=== PATIENT | female | born 1995 | race African-American/Black ===

== ENCOUNTER 2018-01-29 01:33 | Emergency (ER) | payer OTHER ==
[~2018-01-29] VITALS: Ht 165.1 cm; Wt 90.7 kg
[2018-01-29 01:51] VITALS: BP 137/88
[2018-01-29] MEDS ORDERED: LIDOCAINE 2% PF 2ML VIAL. ONE (02:12)
--- NOTE | 2018-01-29 02:15 | PHYS DOC ---
Past Medical History Past Medical History: No Pertinent History Past Surgical History: No Surgical History Alcohol Use: None Drug Use: None Adult General Chief Complaint Chief Complaint: FOREIGNBODY EAR HPI HPI Patient is a 22-year-old -[place] female who presents to the emergency department for evaluation of a foreign body sensation in her right ear. She states that she felt a bug crawl in her ear earlier and still feels the bug moving. She denies any other complaints of pain. She has not had any nausea or vomiting. Review of Systems Review of Systems Constitutional: Denies fever or chills [] Respiratory: Denies cough or shortness of breath [] : Denies [] Current Medications Current Medications Current Medications Medications (Trade) Dose Ordered Sig/Kailash Start Time Stop Time Status Last Admin Dose Admin Lidocaine HCl (Xylocaine-Mpf 2% Vial) 2 ml STK-MED ONCE 01/29/18 02:12 01/29/18 02:13 DC Allergies Allergies Allergies Coded Allergies Type Severity Reaction Last Updated Verified No Known Drug Allergies 08/20/14 No Physical Exam Physical Exam PHYSICAL EXAM: HEENT: PERRL, EOMI, There is at least one bug, moving, visualized in the right external auditory canal. NECK: Supple, normal ROM, non-tender. CARDIAC: Regular Rate and Rhythm LUNGS: Clear Bilaterally EXTREMITIES: Normal range of motion. Current Patient Data Vital Signs Vital Signs Date Time Temp Pulse Resp B/P (MAP) Pulse Ox O2 Delivery O2 Flow Rate FiO2 01/29/18 01:51 97.9 75 18 137/88 (104) 99 Room Air 97.9 EKG EKG [] Radiology/Procedures Radiology/Procedures [] Course & Med Decision Making Course & Med Decision Making FOREIGN BODY REMOVAL ATTEMPTS: 1% lidocaine was instilled with the right external auditory canal, which resulted in killing of the insect in the patient's ear, as evidenced by lack of movement. Several attempts were made, using both an alligator forceps, as well as a lighted ear curet, to remove the bug, but was unable to be removed, partially due to the patient's poor tolerance of attempts, due to discomfort from the instruments in her ear canal. Irrigation was attempted as well without success. I discussed the residual foreign body in her ear, the need for ENT follow-up later today, where the patient can have the bug removed. Dragon Disclaimer Dragon Disclaimer This electronic medical record was generated, in whole or in part, using a voice recognition dictation system. Departure Departure Impression: Primary Impression: Foreign body in ear Disposition: 01 HOME, SELF-CARE Condition: STABLE Referrals: INÉS FULLER MD Patient Instructions: Ear Foreign Body Additional Instructions: Bug in her ear was unable to be removed in the emergency department. It is important that she follow-up with your nose and throat specialist as instructed for definitive treatment and bug removal. BALAJI WOLFE MD Jan 29, 2018 02:15
== END 2018-01-29 02:42 | disposition home or self-care (01) ==
LOC: ER 01:33
DX: T16.1XXA Foreign body in right ear, initial encounter (principal); Y93.89 Activity, other specified; Y92.89 Other specified places as the place of occurrence of the external cause; Y99.8 Other external cause status
CPT/HCPCS: 69200; 99284-25

== ENCOUNTER 2018-03-04 16:23 | Emergency (ER) | payer SELFPAY ==
[~2018-03-04] VITALS: Ht 165.1 cm; Wt 90.7 kg
[2018-03-04 17:44] VITALS: BP 144/89
[2018-03-04] MEDS ORDERED: AZIT250T PO (18:20)
[2018-03-04] MEDS ORDERED: METH4TAB2 PO (18:20)
--- NOTE | 2018-03-04 18:21 | PHYS DOC ---
Past Medical History Past Medical History: No Pertinent History Past Surgical History: No Surgical History Additional Information: 0.25 PPD Alcohol Use: Occasionally Drug Use: None Adult General Chief Complaint Chief Complaint: CHEST WALL PAIN HPI HPI Patient is a 22 year old [f__sex] who presents with [] Review of Systems Review of Systems Constitutional: Denies fever or chills [] Eyes: Denies change in visual acuity, redness, or eye pain [] HENT: Denies nasal congestion or sore throat [] Respiratory: Denies cough or shortness of breath [] Cardiovascular: No additional information not addressed in HPI [] GI: Denies abdominal pain, nausea, vomiting, bloody stools or diarrhea [] : Denies dysuria or hematuria [] Musculoskeletal: Denies back pain or joint pain [] Integument: Denies rash or skin lesions [] Neurologic: Denies headache, focal weakness or sensory changes [] Endocrine: Denies polyuria or polydipsia [] All other systems were reviewed and found to be within normal limits, except as documented in this note. Allergies Allergies Allergies Coded Allergies Type Severity Reaction Last Updated Verified No Known Drug Allergies 08/20/14 No Physical Exam Physical Exam Constitutional: Well developed, well nourished, no acute distress, non-toxic appearance. [] HENT: Normocephalic, atraumatic, bilateral external ears normal, oropharynx moist, no oral exudates, nose normal. [] Eyes: PERRLA, EOMI, conjunctiva normal, no discharge. [] Neck: Normal range of motion, no tenderness, supple, no stridor. [] Cardiovascular:Heart rate regular rhythm, no murmur [] Lungs & Thorax: Bilateral breath sounds clear to auscultation [] Abdomen: Bowel sounds normal, soft, no tenderness, no masses, no pulsatile masses. [] Skin: Warm, dry, no erythema, no rash. [] Back: No tenderness, no CVA tenderness. [] Extremities: No tenderness, no cyanosis, no clubbing, ROM intact, no edema. [] Neurologic: Alert and oriented X 3, normal motor function, normal sensory function, no focal deficits noted. [] Psychologic: Affect normal, judgement normal, mood normal. [] Current Patient Data Vital Signs Vital Signs Date Time Temp Pulse Resp B/P (MAP) Pulse Ox O2 Delivery O2 Flow Rate FiO2 9/19/18 17:44 97.8 92 20 144/89 (107) 100 Room Air 97.8 EKG EKG [] Radiology/Procedures Radiology/Procedures [] Course & Med Decision Making Course & Med Decision Making Pertinent Labs and Imaging studies reviewed. (See chart for details) [] Dragon Disclaimer Dragon Disclaimer This electronic medical record was generated, in whole or in part, using a voice recognition dictation system. Departure Departure Impression: Primary Impression: Chest wall pain Disposition: HOME, SELF-CARE Condition: STABLE Referrals: NO PCP (PCP) Patient Instructions: Bronchitis, Chest Wall Pain Additional Instructions: Take the medication as prescribed. Follow up with your PCP in 3 days if not improving or return to the ED if worsening. Scripts Azithromycin (ZITHROMAX) 250 Mg Tablet 1 PKG PO UD, #1 PKG Prov: SAVANNA DUMONT ASSEMBLY LEADER 03/04/18 Methylprednisolone (MEDROL) 4 Mg Tab.ds.pk 1 PKG PO UD, #1 PKG Prov: SAVANNA DUMONT ASSEMBLY LEADER 03/04/18 SVAANNA DUMONT ASSEMBLY LEADER Mar 04, 2018 18:21
--- NOTE | 2018-03-04 19:54 | EKG ---
[facility] [address] [place] [address] Test Date: 2018-03-04 Test Time: 16:44:04 Pat Name: MORENO BROWN Department: Room: Gender: F Employment And Claims Aide: : 1995 Requested By: KYA MENDOZA Order Number: [id number] Reading MD: Measurements Intervals [place] Rate: 103 P: 51 VT: 154 QRS: 42 QRSD: 72 T: 31 QT: 330 QTc: 434 Interpretive Statements SINUS TACHYCARDIA OTHERWISE NORMAL ECG RI6.01 No previous ECG available for comparison
== END 2018-03-04 18:33 | disposition home or self-care (01) ==
LOC: ER 16:23
DX: R07.89 Other chest pain (principal); F17.200 Nicotine dependence, unspecified, uncomplicated
CPT/HCPCS: 93005; 99283

== ENCOUNTER 2018-11-16 21:40 | Emergency (ER) | payer OTHER ==
[~2018-11-16] VITALS: Ht 165.1 cm; Wt 107.5 kg
[~2018-11-16 21:40] MED LIST changes: -METO10TA81 PO
--- NOTE | 2018-11-16 22:10 | PHYS DOC ---
Past Medical History Past Medical History: No Pertinent History (KIM CONNELL) Past Surgical History: No Surgical History (KIM CONNELL) Alcohol Use: None Drug Use: None (KIM CONNELL) Adult General Chief Complaint Chief Complaint: VOMITING IN HPI HPI Patient is a 23 year old F who is 19 weeks with her second . She has a 4 year old little boy at home and states her first was uncomplicated. She saw her OB, Dr Panchal, today and had an ultrasound done which showed is a girl. She discussed with him that she hasn't felt well, lots of N/V and he recommended she come in for IV fluids but she didn't want to at that time. She is here now with complaints of N/V, headache and "not feeling well". She denies vaginal bleeding or any cramps or contractions. heart tones were obtained on arrival and strong in 130-140's in LLQ region. (KIM CONNELL) Review of Systems Review of Systems Constitutional: Denies fever or chills Respiratory: Denies cough or shortness of breath Cardiovascular: Denies chest pain GI: Denies abdominal pain, constipation or diarrhea. Reports nausea and vomiting. : Denies dysuria or hematuria. Denies vaginal discharge or vaginal bleeding. Musculoskeletal: Denies back pain or joint pain Integument: Denies rash or skin lesions Neurologic: Denies headache, focal weakness or sensory changes Endocrine: Denies polyuria or polydipsia All other systems were reviewed and found to be within normal limits, except as documented in this note. (KIM CONNELL) Current Medications Current Medications Current Medications Medications (Trade) Dose Ordered Sig/Kailash Start Time Stop Time Status Last Admin Dose Admin Acetaminophen (Tylenol) 650 mg 1X ONCE 11/16/18 23:15 11/16/18 23:16 DC 11/16/18 23:58 650 MG Diphenhydramine HCl (Benadryl) 12.5 mg 1X ONCE 11/16/18 22:15 11/16/18 22:16 DC 11/16/18 22:26 12.5 MG Metoclopramide HCl (Reglan Vial) 5 mg 1X ONCE 6/3/19 23:15 11/16/18 23:16 DC 11/16/18 23:59 5 MG Potassium Chloride (Klor-Con) 20 meq 1X ONCE 11/16/18 23:00 11/16/18 23:01 DC 11/16/18 23:00 20 MEQ Sodium Chloride 1,000 ml @ 1,000 mls/hr 1X ONCE 11/16/18 22:15 11/16/18 23:14 DC 11/16/18 22:25 1,000 MLS/HR (ROSARIO SANTACRUZ MD) Allergies Allergies Allergies Coded Allergies Type Severity Reaction Last Updated Verified No Known Drug Allergies 08/20/14 No (ROSARIO SANTACRUZ MD) Physical Exam Physical Exam Constitutional: Well developed, well nourished, no acute distress, non-toxic appearance. HENT: Normocephalic, atraumatic, bilateral external ears normal, oropharynx moist, no oral exudates, nose normal. Neck: Normal range of motion, no tenderness, supple, no stridor. Cardiovascular:Heart rate regular rhythm, no murmur Lungs & Thorax: Bilateral breath sounds clear to auscultation Abdomen: Bowel sounds normal, soft, no tenderness, no masses, no pulsatile masses. Gravid uterus consistent with dates. Skin: Warm, dry, no erythema, no rash. Back: No tenderness, no CVA tenderness. Extremities: No tenderness, no cyanosis, no clubbing, ROM intact, no edema. Neurologic: Alert and oriented X 3, normal motor function, normal sensory function, no focal deficits noted. Psychologic: Affect normal, judgement normal, mood normal. (KIM CONNELL) Current Patient Data Vital Signs Vital Signs Date Time Temp Pulse Resp B/P (MAP) Pulse Ox O2 Delivery O2 Flow Rate FiO2 11/17/18 00:00 84 18 105/58 (74) 99 Room Air 11/16/18 21:59 98.4 98.4 (ROSARIO SANTACRUZ MD) Lab Values Laboratory Tests Test 11/16/18 21:56 11/16/18 22:14 Urine Collection Type Unknown Urine Color Genesis Urine Clarity Turbid Urine pH 6.0 Urine Specific [place] >=1.030 Urine Protein 100 mg/dL (NEG-TRACE) Urine Glucose (UA) Negative mg/dL (NEG) Urine Ketones (Stick) >=80 mg/dL (NEG) Urine Blood Trace (NEG) Urine Nitrite Negative (NEG) Urine Bilirubin Negative (NEG) Urine Urobilinogen Dipstick 1.0 mg/dL (0.2 mg/dL) Urine Leukocyte Esterase Large (NEG) Urine RBC Occ /HPF (0-2) Urine WBC 5-10 /HPF (0-4) Urine Squamous Epithelial Cells Many /LPF Urine Bacteria Few /HPF (0-FEW) Urine Mucus Mod /LPF White Blood Count 8.7 x10^3/uL (4.0-11.0) Red Blood Count 3.50 x10^6/uL (3.50-5.40) Hemoglobin 10.5 g/dL (12.0-15.5) L Hematocrit 31.1 % (36.0-47.0) L Mean Corpuscular Volume 89 fL (79-100) Mean Corpuscular Hemoglobin 30 pg (25-35) Mean Corpuscular Hemoglobin Concent 34 g/dL (31-37) Red Cell Distribution Width 13.3 % (11.5-14.5) Platelet Count 107 x10^3/uL (140-400) L Neutrophils (%) (Auto) 65 % (31-73) Lymphocytes (%) (Auto) 25 % (24-48) Monocytes (%) (Auto) 9 % (0-9) Eosinophils (%) (Auto) 1 % (0-3) Basophils (%) (Auto) 1 % (0-3) Neutrophils # (Auto) 5.7 x10^3uL (1.8-7.7) Lymphocytes # (Auto) 2.2 x10^3/uL (1.0-4.8) Monocytes # (Auto) 0.8 x10^3/uL (0.0-1.1) Eosinophils # (Auto) 0.0 x10^3/uL (0.0-0.7) Basophils # (Auto) 0.0 x10^3/uL (0.0-0.2) Sodium Level 141 mmol/L (136-145) Potassium Level 3.0 mmol/L (3.5-5.1) L Chloride Level 102 mmol/L (98-107) Carbon Dioxide Level 24 mmol/L (21-32) Anion Gap 15 (6-14) H Blood Urea Nitrogen 2 mg/dL (7-20) L Creatinine 0.5 mg/dL (0.6-1.0) L Estimated GFR (Cockcroft-Gault) 181.9 BUN/Creatinine Ratio 4 (6-20) L Glucose Level 84 mg/dL (70-99) Calcium Level 9.3 mg/dL (8.5-10.1) Total Bilirubin 0.3 mg/dL (0.2-1.0) Aspartate Amino Transferase (AST) 21 U/L (15-37) Alanine Aminotransferase (ALT) 48 U/L (14-59) Alkaline Phosphatase 70 U/L (46-116) Total Protein 6.9 g/dL (6.4-8.2) Albumin 3.6 g/dL (3.4-5.0) Albumin/Globulin Ratio 1.1 (1.0-1.7) Laboratory Tests 11/16/18 22:14 Laboratory Tests 11/16/18 22:14 (ROSARIO SANTACRUZ MD) Lab Values Laboratory Tests Test 11/16/18 21:56 11/16/18 22:14 Urine Collection Type Unknown Urine Color Genesis Urine Clarity Turbid Urine pH 6.0 Urine Specific [place] >=1.030 Urine Protein 100 mg/dL (NEG-TRACE) Urine Glucose (UA) Negative mg/dL (NEG) Urine Ketones (Stick) >=80 mg/dL (NEG) Urine Blood Trace (NEG) Urine Nitrite Negative (NEG) Urine Bilirubin Negative (NEG) Urine Urobilinogen Dipstick 1.0 mg/dL (0.2 mg/dL) Urine Leukocyte Esterase Large (NEG) Urine RBC Occ /HPF (0-2) Urine WBC 5-10 /HPF (0-4) Urine Squamous Epithelial Cells Many /LPF Urine Bacteria Few /HPF (0-FEW) Urine Mucus Mod /LPF White Blood Count 8.7 x10^3/uL (4.0-11.0) Red Blood Count 3.50 x10^6/uL (3.50-5.40) Hemoglobin 10.5 g/dL (12.0-15.5) L Hematocrit 31.1 % (36.0-47.0) L Mean Corpuscular Volume 89 fL (79-100) Mean Corpuscular Hemoglobin 30 pg (25-35) Mean Corpuscular Hemoglobin Concent 34 g/dL (31-37) Red Cell Distribution Width 13.3 % (11.5-14.5) Platelet Count 107 x10^3/uL (140-400) L Neutrophils (%) (Auto) 65 % (31-73) Lymphocytes (%) (Auto) 25 % (24-48) Monocytes (%) (Auto) 9 % (0-9) Eosinophils (%) (Auto) 1 % (0-3) Basophils (%) (Auto) 1 % (0-3) Neutrophils # (Auto) 5.7 x10^3uL (1.8-7.7) Lymphocytes # (Auto) 2.2 x10^3/uL (1.0-4.8) Monocytes # (Auto) 0.8 x10^3/uL (0.0-1.1) Eosinophils # (Auto) 0.0 x10^3/uL (0.0-0.7) Basophils # (Auto) 0.0 x10^3/uL (0.0-0.2) Sodium Level 141 mmol/L (136-145) Potassium Level 3.0 mmol/L (3.5-5.1) L Chloride Level 102 mmol/L (98-107) Carbon Dioxide Level 24 mmol/L (21-32) Anion Gap 15 (6-14) H Blood Urea Nitrogen 2 mg/dL (7-20) L Creatinine 0.5 mg/dL (0.6-1.0) L Estimated GFR (Cockcroft-Gault) 181.9 BUN/Creatinine Ratio 4 (6-20) L Glucose Level 84 mg/dL (70-99) Calcium Level 9.3 mg/dL (8.5-10.1) Total Bilirubin 0.3 mg/dL (0.2-1.0) Aspartate Amino Transferase (AST) 21 U/L (15-37) Alanine Aminotransferase (ALT) 48 U/L (14-59) Alkaline Phosphatase 70 U/L (46-116) Total Protein 6.9 g/dL (6.4-8.2) Albumin 3.6 g/dL (3.4-5.0) Albumin/Globulin Ratio 1.1 (1.0-1.7) Laboratory Tests 11/16/18 22:14 Laboratory Tests 11/16/18 22:14 (KIM CONNELL) EKG EKG [] (KIM CONNELL) Radiology/Procedures Radiology/Procedures [] (KIM CONNELL) Course & Med Decision Making Course & Med Decision Making Pertinent Labs and Imaging studies reviewed. (See chart for details) Pt's labs reassuring. Hypokalemia noted. She did tolerated PO potassium while in ER and had no vomiting. She was given IV fluids and Reglan and reported feeling improvement. Recommend potassium rich diet and fluids and bland diet and close f/u with Dr. Panchal. Pt to return if symptoms worsen at anytime. (KIM CONNELL) Course & Med Decision Making Staff Physician Addendum: I was working in the ER during the course of this patient's visit. I was available for consultation as needed, but I was not directly involved in the care of this patient. (ROSARIO SANTACRUZ MD) Dragon Disclaimer Dragon Disclaimer This electronic medical record was generated, in whole or in part, using a voice recognition dictation system. (KIM CONNELL) Departure Departure Impression: Primary Impression: Nausea and vomiting during Additional Impression: Hypokalemia Disposition: 01 HOME, SELF-CARE Condition: IMPROVED Referrals: NO PCP (PCP) LOLIS PANCHAL Jr, MD Patient Instructions: Diet - Hyperemesis Gravidarum, Hypokalemia, Nausea and Vomiting, [id number] Additional Instructions: Coffee diet (ex: bananas, rice, applesauce, toast) Push fluids. Eat and drink potassium rich foods, such as orange juice, bananas, green vegetables. Scripts Metoclopramide Hcl (REGLAN) 10 Mg Tablet 10 MG PO BIDAC PRN for NAUSEA/VOMITING, #20 TAB 0 Refills Prov: KIM CONNELL 11/16/18 Problem Qualifiers KIM CONNELL Nov 16, 2018 22:10 ROSARIO SANTACRUZ MD Nov 17, 2018 04:56
[2018-11-16 22:13] LABS: BILIRUBIN,URINE NEGATIVE (NEG); CLARITY,URINE TURBID; COLOR,URINE AMBER; NITRITE,URINE NEGATIVE (NEG); PROTEIN,URINE 100 mg/dL (NEG-TRACE)
[2018-11-16] MEDS ORDERED: diphenhydrAMINE 50 MG/ML VIAL IVP ONE (22:15)
[2018-11-16] MEDS ORDERED: METOCLOPRAMIDE HCL 10 MG/2 ML VIAL. IV ONE ×2 (22:15→23:15)
[2018-11-16] MEDS ORDERED: IV NORMAL SALINE 1000ML BAG 1,000 ML IV ONE (22:15)
[2018-11-16 22:22] LABS: BASO % 1 % (0-3); EOS % 1 % (0-3); HEMATOCRIT 31.1 % (36.0-47.0); HEMOGLOBIN 10.5 g/dL (12.0-15.5); LYMPH # 2.2 x10^3/uL (1.0-4.8); LYMPH % 25 % (24-48); MEAN CORPUSCULAR HEMOGLOBIN 30 pg (25-35); MEAN CORPUSCULAR HGB CONC 34 g/dL (31-37); MEAN CORPUSCULAR VOLUME 89 fL (79-100); MONO # 0.8 x10^3/uL (0.0-1.1); MONO % 9 % (0-9); NEUT # 5.7 x10^3uL (1.8-7.7); NEUT % 65 % (31-73); PLATELET COUNT 107 x10^3/uL (140-400); RED CELL DISTRIBUTION WIDTH 13.3 % (11.5-14.5); WHITE BLOOD COUNT 8.7 x10^3/uL (4.0-11.0)
[2018-11-16 22:27] LABS: SQUAMOUS EPITHELIAL CELL,UR MANY /LPF
[2018-11-16 22:28] LABS: BACTERIA,URINE FEW /HPF (0-FEW); RBC,URINE OCC /HPF (0-2)
[2018-11-16 22:39] LABS: ALBUMIN 3.6 g/dL (3.4-5.0); ALBUMIN/GLOBULIN RATIO 1.1 (1.0-1.7); CALCIUM 9.3 mg/dL (8.5-10.1); CREATININE 0.5 mg/dL (0.6-1.0); GFR 181.9; TOTAL BILIRUBIN 0.3 mg/dL (0.2-1.0); TOTAL PROTEIN 6.9 g/dL (6.4-8.2)
[2018-11-16] MEDS ORDERED: POTASSIUM CHLORIDE 20 MEQ TABLET.ER. PO ONE ×2 (22:58→23:00)
[2018-11-16] MEDS ORDERED: ACETAMINOPHEN 325 MG TABLET. PO ONE (23:15)
[2018-11-16] MEDS ORDERED: METO10TA81 PO (23:19)
[2018-11-17] VITALS: BP 105/58
== END 2018-11-17 00:06 | disposition home or self-care (01) ==
LOC: ER 21:40
DX: O21.9 Vomiting of pregnancy, unspecified (principal); E87.6 Hypokalemia; R51 Headache; Z3A.19 19 weeks gestation of pregnancy
CPT/HCPCS: 36415; 80053; 81001; 85025; 87086; 96361; 96374; 96375; 96376; 99284; J1200; J2765; J7030

== ENCOUNTER → 2018-11-16 | Outpatient (CLI) | payer MEDICAID, OTHER ==
[~2018-11-16] MED LIST: AZIT250T PO; METH4TAB2 PO; METO10TA81 PO
--- NOTE | 2018-11-16 16:32 | RAD ---
EXAM: Obstetric ultrasound. HISTORY: Size/date discrepancy. COMPARISON: None. FINDINGS: Sonography of the pelvis and fetus was performed transabdominally. There is a single fetus in vertex presentation. heart rate is 155 bpm. Estimated gestational age based on measurements is 19 weeks 6 days. Estimated weight is 302 g. Individual measurements are commensurate at 19 weeks 2 days-20 weeks 3 days for biparietal diameter, head circumference, abdominal circumference, and femur length. Refer to the worksheets for full detail. The placenta is posterior. Amniotic fluid volume appears normal with amniotic fluid index 16.4 cm. The cervix is closed and measures 4.0 cm. extremities appear normal. Images of the spine reveal no clear defects. The stomach and bladder are visualized. The cord is three-vessel. The cord insertion appears normal. The heart is four-chamber. Nose/lip morphology appears normal. The posterior fossa appears normal. There is no hydrocephalus. Images of the kidneys reveal no hydronephrosis. The maternal adnexa are obscured currently. IMPRESSION: 1. Single fetus in vertex presentation. Estimated gestational age based on measurements 19 weeks 6 days. heart rate 155 bpm. Electronically signed by: Daniel Cosby MD (11/16/2018 4:29 PM) [facility]
== END | disposition home or self-care (01) ==
LOC: US 11:37
PROVIDERS: ATTEND Obstetrics & Gynecology
DX: O26.842 Uterine size-date discrepancy, second trimester (principal); Z3A.19 19 weeks gestation of pregnancy
CPT/HCPCS: 76805

== ENCOUNTER → 2019-02-24 | Outpatient (CLI) | payer OTHER ==
[~2019-02-24] MED LIST changes: +METO10TA81 PO
[2019-02-24 14:00] LABS: BASO % 0 % (0-3); EOS % 0 % (0-3); HEMATOCRIT 26.9 % (36.0-47.0); HEMOGLOBIN 9.1 g/dL (12.0-15.5); LYMPH # 1.6 x10^3/uL (1.0-4.8); LYMPH % 17 % (24-48); MEAN CORPUSCULAR HEMOGLOBIN 30 pg (25-35); MEAN CORPUSCULAR HGB CONC 34 g/dL (31-37); MEAN CORPUSCULAR VOLUME 90 fL (79-100); MONO # 0.5 x10^3/uL (0.0-1.1); MONO % 6 % (0-9); NEUT # 7.1 x10^3/uL (1.8-7.7); NEUT % 77 % (31-73); PLATELET COUNT 149 x10^3/uL (140-400); RED BLOOD COUNT 2.99 x10^6/uL (3.50-5.40); RED CELL DISTRIBUTION WIDTH 13.8 % (11.5-14.5); WHITE BLOOD COUNT 9.3 x10^3/uL (4.0-11.0)
== END | disposition home or self-care (01) ==
LOC: LAB 12:16
PROVIDERS: ATTEND Obstetrics & Gynecology
DX: O09.93 Supervision of high risk pregnancy, unspecified, third trimester (principal); Z3A.34 34 weeks gestation of pregnancy
CPT/HCPCS: 36415; 82950; 85025

== ENCOUNTER 2019-04-10 15:03 | Observation (INO) | payer OTHER ==
[2019-04-10] MEDS ORDERED: IV RINGERS,LACTATED 1000ML 1,000 ML IV SCH (15:32)
[2019-04-10 15:54] LABS: BILIRUBIN,URINE NEGATIVE (NEG); CLARITY,URINE CLEAR; COLOR,URINE YELLOW; NITRITE,URINE NEGATIVE (NEG); PH,URINE 7.5; PROTEIN,URINE NEGATIVE (NEG-TRACE); UROBILINOGEN,URINE 0.2 mg/dL (0.2 mg/dL)
[2019-04-10 16:09] LABS: AMORPHOUS SEDIMENT,UR PRESENT /HPF; BACTERIA,URINE MODERATE /HPF (0-FEW); SQUAMOUS EPITHELIAL CELL,UR MANY /LPF; WBC,URINE 20-40 /HPF (0-4)
[2019-04-10 16:11] LABS: RBC,URINE 0 /HPF (0-2)
== END 2019-04-10 17:00 | disposition home or self-care (01) ==
LOC: 3 SO LND 15:03
PROVIDERS: ADMIT Obstetrics & Gynecology; ATTEND Obstetrics & Gynecology
DX: O62.9 Abnormality of forces of labor, unspecified (principal); Z3A.39 39 weeks gestation of pregnancy
CPT/HCPCS: G0378; G0379; 81001; 87086

== ENCOUNTER 2019-04-11 07:08 | Inpatient (IN) | payer OTHER ==
[~2019-04-11] VITALS: Ht 162.6 cm; Wt 105.2 kg
[2019-04-11] MEDS ORDERED: IV RINGERS,LACTATED 1000ML 1,000 ML IV PRN (07:15)
[2019-04-11 07:30] VITALS: BP 131/77
[2019-04-11 08:06] LABS: BILIRUBIN,URINE NEGATIVE (NEG); CLARITY,URINE CLOUDY; COLOR,URINE YELLOW; NITRITE,URINE NEGATIVE (NEG); PH,URINE 6.5; PROTEIN,URINE NEGATIVE (NEG-TRACE)
[2019-04-11] MEDS ORDERED: TERBUTALINE 1 MG/ML VIAL. SQ PRN (08:15)
[2019-04-11] MEDS ORDERED: fentaNYL PF VIAL 100 MCG/2 ML VIAL IV PRN ×2 (08:15)
[2019-04-11] MEDS ORDERED: 0.9 % SODIUM CHLORIDE 10 ML DISP.SYRIN. IV PRN ×2 (08:15→11:45)
[2019-04-11] MEDS ORDERED: OXYTOCIN 30 UNIT/500 ML PREMIX 500 ML IV PRN ×3 (08:15→11:45)
[2019-04-11] MEDS ORDERED: LIDOCAINE 1% PF 30 ML VIAL. INJ PRN (08:15)
[2019-04-11] MEDS ORDERED: IBUPROFEN 400 MG TABLET. PO PRN (08:15)
[2019-04-11 08:21] LABS: BACTERIA,URINE MODERATE /HPF (0-FEW); SQUAMOUS EPITHELIAL CELL,UR MOD /LPF; WBC,URINE >40 /HPF (0-4)
[2019-04-11 08:28] LABS: BASO # 0.1 x10^3/uL (0.0-0.2); BASO % 1 % (0-3); EOS % 0 % (0-3); HEMOGLOBIN 10.8 g/dL (12.0-15.5); LYMPH # 1.8 x10^3/uL (1.0-4.8); LYMPH % 19 % (24-48); MEAN CORPUSCULAR HEMOGLOBIN 30 pg (25-35); MEAN CORPUSCULAR HGB CONC 34 g/dL (31-37); MEAN CORPUSCULAR VOLUME 89 fL (79-100); MONO # 0.7 x10^3/uL (0.0-1.1); MONO % 7 % (0-9); NEUT # 6.8 x10^3/uL (1.8-7.7); NEUT % 72 % (31-73); PLATELET COUNT 144 x10^3/uL (140-400); RED BLOOD COUNT 3.58 x10^6/uL (3.50-5.40); RED CELL DISTRIBUTION WIDTH 14.4 % (11.5-14.5); WHITE BLOOD COUNT 9.4 x10^3/uL (4.0-11.0)
[2019-04-11] MEDS ORDERED: PENICILLIN G K 5,000,000 UNIT in IV DEXTROSE 5% 100ML 100 ML IV ONE (08:30)
[2019-04-11] MEDS: IV RINGERS,LACTATED 1000ML 1,000 ML IV SCH ×4 (08:32→16:57)
[2019-04-11] MEDS ORDERED: NALOXONE 0.4 MG/ML VIAL. IV PRN (09:00)
[2019-04-11] MEDS ORDERED: ROPIVacaine 0.2% IN 0.9%NACL PF 40 MG/20 ML DISP.SYRIN. IJ PRN (09:00)
[2019-04-11] MEDS ORDERED: ePHEDrine PF IN SALINE 50 MG/10 ML SYRINGE. IV PRN (09:00)
[2019-04-11] MEDS ORDERED: ROPIVacaine 0.2% PF 10 ML VIAL. ONE (09:06)
[2019-04-11] MEDS ORDERED: L&D EPIDURAL SYRINGE 50 ML EPID PRN (09:15)
--- NOTE | 2019-04-11 11:32 | PDOC1 ---
OB - History Hx of Present Care: Good Care Ultrasounds: Normal mid trimester US Obstetrical Complications: None Medical Complications: None Past Family/Social History * Past Medical, Surgical, Family and Obstetric Histories reviewed from chart. Rubella: Immune RPR/VDRL: Negative GBS Status: Negative HBsAG: Negative OB - Chief Complaint & HPI Date of Admission: Date of Admission: Apr 11, 2019 at 07:08 Chief Complaint/History : 2 Para: 1 EGA: 39 Reason for admission: active labor Admission Nurse Assessment Rev: Yes OB - Admission Exam Physical Exam Vitals: VS - Last 72 Hours, by Label Date Time Temp Pulse Resp B/P (MAP) Pulse Ox O2 Delivery O2 Flow Rate FiO2 04/11/19 08:27 16 Room Air 04/11/19 07:30 97.5 88 20 131/77 (95) 97.5 HEENT: Normal Heart: Regular Rate Lungs: Clear Abdomen: Gravid, Non tender, Soft Extremities: Edema Reflexes: Normal Cervical Dilatation: 4cm Effacement: 75% Station: -3 Membranes: Intact Amniotic Fluid: Thick Meconium Heart Rate: Normal Accelerations: Accelerations Present Decelerations: No decelerations Contractions on Admission: < 5 Minutes Apart Intensity: Firm Text A: 39 wks IUP Active labor P: Admit labor management. LOLIS MANN Jr, MD Apr 11, 2019 11:32
--- NOTE | 2019-04-11 11:33 | PDOC ---
VAGINAL DELIVERY DATE DATE: 04/11/19 TIME: 11:32 : 2 Para: 2 EGA: 39 VAGINAL DELIVERY: VTX VACCUM ASSISTED: No PLACENTA: Spontaneous 8/9 SEX: Female WEIGHT Weight [3274 gm] Nuchal Cord: No Amniotic Fluid: Thick Meconium PAIN: Epidural EPISIOTOMY: No EXTENSION: No EBL 300 ml COMPLICATIONS none CONDITION pt. stable Signs of Intrauterine Infectio: None Shoulder Dystocia: No LOLIS MANN Jr, MD Apr 11, 2019 11:33
[2019-04-11] MEDS ORDERED: PHENYLEPH/MINERAL OIL/PETROLAT RECTAL OINTMENT TUBE. RC PRN (11:45)
[2019-04-11] MEDS ORDERED: ACETAMINOPHEN 325 MG TABLET. PO PRN (11:45)
[2019-04-11] MEDS ORDERED: diphenhydrAMINE HCL 25 MG CAPSULE PO PRN (11:45)
[2019-04-11] MEDS ORDERED: MMR per PROTOCOL. MC PRN (11:45)
[2019-04-11] MEDS ORDERED: BENZOCAINE 20% TOPICAL AEROSOL SPRAY 57GM CAN. TP PRN (11:45)
[2019-04-11] MEDS ORDERED: ZOLPIDEM 5 MG TABLET. PO PRN (11:45)
[2019-04-11] MEDS ORDERED: MAGNESIUM HYDROXIDE 2,400 MG/30 ML ORAL.SUSP. PO PRN (11:45)
[2019-04-11] MEDS ORDERED: SIMETHICONE 80 MG TAB.CHEW PO PRN (11:45)
[2019-04-11] MEDS ORDERED: MAG HYDROX/ALUMINUM HYD/SIMETH 30 ML ORAL.SUSP PO PRN (11:45)
[2019-04-11] MEDS ORDERED: HYDROCORTISONE 1% TOPICAL OINTMENT 30GM TUBE. TP PRN (11:45)
[2019-04-11] MEDS: PENICILLIN G K 2,500,000 UNIT in IV DEXTROSE 5% 50 ML IV SCH ×3 (12:30→20:30)
[2019-04-11 14:35] VITALS: BP 153/68
[2019-04-11 15:05] VITALS: BP 117/68
[2019-04-11 16:00] VITALS: BP 112/73
[2019-04-11] MEDS: IBUPROFEN 400 MG TABLET. PO PRN (16:05)
[2019-04-11] MEDS: oxyCODONE/APAP 5/325 1 TAB TABLET PO PRN ×2 (19:04→23:10)
[2019-04-11 19:54] VITALS: BP 112/69
[2019-04-11] MEDS: DOCUSATE SODIUM 100 MG CAPSULE. PO PRN (23:08)
[2019-04-12] MEDS: oxyCODONE/APAP 5/325 1 TAB TABLET PO PRN ×6 (00:04→23:58)
[2019-04-12 00:21] VITALS: BP 107/58
[2019-04-12] MEDS: PENICILLIN G K 2,500,000 UNIT in IV DEXTROSE 5% 50 ML IV SCH (00:30)
[2019-04-12 04:22] LABS: BASO % 0 % (0-3); EOS % 0 % (0-3); HEMATOCRIT 26.8 % (36.0-47.0); HEMOGLOBIN 8.8 g/dL (12.0-15.5); LYMPH # 2.5 x10^3/uL (1.0-4.8); LYMPH % 22 % (24-48); MEAN CORPUSCULAR HEMOGLOBIN 30 pg (25-35); MEAN CORPUSCULAR HGB CONC 33 g/dL (31-37); MEAN CORPUSCULAR VOLUME 90 fL (79-100); MONO # 1.2 x10^3/uL (0.0-1.1); MONO % 11 % (0-9); NEUT # 7.9 x10^3/uL (1.8-7.7); NEUT % 67 % (31-73); PLATELET COUNT 126 x10^3/uL (140-400); RED BLOOD COUNT 2.98 x10^6/uL (3.50-5.40); RED CELL DISTRIBUTION WIDTH 14.3 % (11.5-14.5); WHITE BLOOD COUNT 11.8 x10^3/uL (4.0-11.0)
[2019-04-12] MEDS: IBUPROFEN 400 MG TABLET. PO PRN ×2 (05:35→13:21)
[2019-04-12 05:44] VITALS: BP 123/86
[2019-04-12] MEDS: FERROUS SULFATE 325 MG TABLET. PO SCH ×2 (06:53→17:25)
[2019-04-12] MEDS: DOCUSATE SODIUM 100 MG CAPSULE. PO PRN ×2 (06:53→17:25)
--- NOTE | 2019-04-12 07:41 | PDOC ---
OB Progress Note Date of Service 04/12/19 Time of Evaluation 0740 Notes Pt. feeling well. No complaints. Lab Laboratory Tests Test 04/11/19 07:46 04/11/19 07:50 04/12/19 03:25 Urine Collection Type Unknown Urine Color Yellow Urine Clarity Cloudy Urine pH 6.5 Urine Specific [place] 1.020 Urine Protein Negative mg/dL (NEG-TRACE) Urine Glucose (UA) Negative mg/dL (NEG) Urine Ketones (Stick) Trace mg/dL (NEG) Urine Blood Large (NEG) Urine Nitrite Negative (NEG) Urine Bilirubin Negative (NEG) Urine Urobilinogen Dipstick 1.0 mg/dL (0.2 mg/dL) Urine Leukocyte Esterase Large (NEG) Urine RBC 3-5 /HPF (0-2) Urine WBC >40 /HPF (0-4) Urine Squamous Epithelial Cells Mod /LPF Urine Bacteria Moderate /HPF (0-FEW) Urine Mucus Mod /LPF White Blood Count 9.4 x10^3/uL (4.0-11.0) 11.8 x10^3/uL (4.0-11.0) Red Blood Count 3.58 x10^6/uL (3.50-5.40) 2.98 x10^6/uL (3.50-5.40) Hemoglobin 10.8 g/dL (12.0-15.5) 8.8 g/dL (12.0-15.5) Hematocrit 32.0 % (36.0-47.0) 26.8 % (36.0-47.0) Mean Corpuscular Volume 89 fL (79-100) 90 fL (79-100) Mean Corpuscular Hemoglobin 30 pg (25-35) 30 pg (25-35) Mean Corpuscular Hemoglobin Concent 34 g/dL (31-37) 33 g/dL (31-37) Red Cell Distribution Width 14.4 % (11.5-14.5) 14.3 % (11.5-14.5) Platelet Count 144 x10^3/uL (140-400) 126 x10^3/uL (140-400) Neutrophils (%) (Auto) 72 % (31-73) 67 % (31-73) Lymphocytes (%) (Auto) 19 % (24-48) 22 % (24-48) Monocytes (%) (Auto) 7 % (0-9) 11 % (0-9) Eosinophils (%) (Auto) 0 % (0-3) 0 % (0-3) Basophils (%) (Auto) 1 % (0-3) 0 % (0-3) Neutrophils # (Auto) 6.8 x10^3/uL (1.8-7.7) 7.9 x10^3/uL (1.8-7.7) Lymphocytes # (Auto) 1.8 x10^3/uL (1.0-4.8) 2.5 x10^3/uL (1.0-4.8) Monocytes # (Auto) 0.7 x10^3/uL (0.0-1.1) 1.2 x10^3/uL (0.0-1.1) Eosinophils # (Auto) 0.0 x10^3/uL (0.0-0.7) 0.0 x10^3/uL (0.0-0.7) Basophils # (Auto) 0.1 x10^3/uL (0.0-0.2) 0.0 x10^3/uL (0.0-0.2) Treponema pallidum Antibody Nonreactive (Nonreactive) Laboratory Tests Test 04/11/19 07:46 04/11/19 07:50 04/12/19 03:25 Urine Collection Type Unknown Urine Color Yellow Urine Clarity Cloudy Urine pH 6.5 Urine Specific [place] 1.020 Urine Protein Negative mg/dL (NEG-TRACE) Urine Glucose (UA) Negative mg/dL (NEG) Urine Ketones (Stick) Trace mg/dL (NEG) Urine Blood Large (NEG) Urine Nitrite Negative (NEG) Urine Bilirubin Negative (NEG) Urine Urobilinogen Dipstick 1.0 mg/dL (0.2 mg/dL) Urine Leukocyte Esterase Large (NEG) Urine RBC 3-5 /HPF (0-2) Urine WBC >40 /HPF (0-4) Urine Squamous Epithelial Cells Mod /LPF Urine Bacteria Moderate /HPF (0-FEW) Urine Mucus Mod /LPF White Blood Count 9.4 x10^3/uL (4.0-11.0) 11.8 x10^3/uL (4.0-11.0) Red Blood Count 3.58 x10^6/uL (3.50-5.40) 2.98 x10^6/uL (3.50-5.40) Hemoglobin 10.8 g/dL (12.0-15.5) 8.8 g/dL (12.0-15.5) Hematocrit 32.0 % (36.0-47.0) 26.8 % (36.0-47.0) Mean Corpuscular Volume 89 fL (79-100) 90 fL (79-100) Mean Corpuscular Hemoglobin 30 pg (25-35) 30 pg (25-35) Mean Corpuscular Hemoglobin Concent 34 g/dL (31-37) 33 g/dL (31-37) Red Cell Distribution Width 14.4 % (11.5-14.5) 14.3 % (11.5-14.5) Platelet Count 144 x10^3/uL (140-400) 126 x10^3/uL (140-400) Neutrophils (%) (Auto) 72 % (31-73) 67 % (31-73) Lymphocytes (%) (Auto) 19 % (24-48) 22 % (24-48) Monocytes (%) (Auto) 7 % (0-9) 11 % (0-9) Eosinophils (%) (Auto) 0 % (0-3) 0 % (0-3) Basophils (%) (Auto) 1 % (0-3) 0 % (0-3) Neutrophils # (Auto) 6.8 x10^3/uL (1.8-7.7) 7.9 x10^3/uL (1.8-7.7) Lymphocytes # (Auto) 1.8 x10^3/uL (1.0-4.8) 2.5 x10^3/uL (1.0-4.8) Monocytes # (Auto) 0.7 x10^3/uL (0.0-1.1) 1.2 x10^3/uL (0.0-1.1) Eosinophils # (Auto) 0.0 x10^3/uL (0.0-0.7) 0.0 x10^3/uL (0.0-0.7) Basophils # (Auto) 0.1 x10^3/uL (0.0-0.2) 0.0 x10^3/uL (0.0-0.2) Treponema pallidum Antibody Nonreactive (Nonreactive) Medications Current Medications Ringer's Solution 1,000 ml @ 125 mls/hr Q8H PRN IV PER PROTOCOL; Start 04/11/19 at 07:15; Stop 04/11/19 at 20:31; Status DC Sodium Chloride (Normal Saline Flush) 3 ml QSHIFT PRN IV AFTER MEDS AND BLOOD DRAWS; Start 04/11/19 at 08:15; Stop 04/12/19 at 07:01; Status DC Ringer's Solution 1,000 ml @ 125 mls/hr Q8H IV Last administered on 04/11/19at 08:32; Start 04/11/19 at 08:30; Stop 04/11/19 at 20:31; Status DC Fentanyl Citrate (Fentanyl 2ml Vial) 50 mcg PRN Q30MIN PRN IV Mild to moderate pain; Start 04/11/19 at 08:15; Stop 04/12/19 at 07:01; Status DC Fentanyl Citrate (Fentanyl 2ml Vial) 100 mcg PRN Q30MIN PRN IV Severe pain Last administered on 04/11/19at 08:27; Start 04/11/19 at 08:15; Stop 04/12/19 at 07:01; Status DC Terbutaline Sulfate (Brethine) 0.25 mg 1X PRN PRN SQ SEE COMMENTS; Start 04/11/19 at 08:15; Stop 04/12/19 at 07:01; Status DC Lidocaine HCl (Xylocaine 1% Pf 30ml Vial) 30 ml 1X PRN PRN INJ SEE COMMENTS; Start 04/11/19 at 08:15; Stop 04/12/19 at 07:01; Status DC Oxytocin/Sodium Chloride 500 ml @ 0 mls/hr CONT PRN IV SEE I/O RECORD; Start 04/11/19 at 08:15; Stop 04/11/19 at 11:42; Status DC Oxytocin/Sodium Chloride 500 ml @ 0 mls/hr CONT PRN PRN IV Post delivery bleeding; Start 04/11/19 at 08:15; Stop 04/11/19 at 11:42; Status DC Ibuprofen (Motrin) 800 mg PRN Q6HRS PRN PO PAIN; Start 04/11/19 at 08:15; Stop 04/11/19 at 11:42; Status DC Penicillin G Potassium 8000481 unit/Dextrose 100 ml @ 100 mls/hr 1X ONCE IV Last administered on 04/11/19at 08:28; Start 04/11/19 at 08:30; Stop 04/11/19 at 20:31; Status DC Penicillin G Potassium 3927361 unit/Dextrose 50 ml @ 100 mls/hr Q4H IV ; Start 04/11/19 at 12:30; Stop 04/12/19 at 01:48; Status DC Fentanyl Citrate 50 ml @ 13 mls/hr CONT PRN EPID PAIN; Start 04/11/19 at 09:15; Stop 04/12/19 at 07:01; Status DC Ringer's Solution 1,000 ml @ 125 mls/hr Q8H IV ; Start 04/11/19 at 08:57; Stop 04/11/19 at 20:31; Status DC Ephedrine Sulfate (ePHEDrine PF IN SALINE SYRINGE) 10 mg PRN Q2MIN PRN IV IF SBP<90; Start 04/11/19 at 09:00; Stop 04/12/19 at 07:01; Status DC Naloxone HCl (Narcan) 0.04 mg PRN Q1MIN PRN IV SEE COMMENTS; Start 04/11/19 at 09:00; Stop 04/12/19 at 07:01; Status DC Ropivacaine/ Sodium Chloride (ROPIVacaine 0.2% - 0.9%NACL PF) 40 mg PRN 1X PRN IJ SEE COMMENTS; Start 04/11/19 at 09:00; Stop 04/12/19 at 07:01; Status DC Ropivacaine (Naropin 0.2%) 10 ml STK-MED ONCE .ROUTE ; Start 04/11/19 at 09:06; Stop 04/11/19 at 09:07; Status DC Sodium Chloride (Normal Saline Flush) 10 ml QSHIFT PRN IV AFTER MEDS AND BLOOD DRAWS; Start 04/11/19 at 11:45; Stop 04/12/19 at 07:01; Status DC Oxytocin/Sodium Chloride 500 ml @ 62.5 mls/hr CONT PRN IV SEE I/O RECORD; Start 04/11/19 at 11:45; Stop 04/11/19 at 19:44; Status DC Acetaminophen (Tylenol) 650 mg PRN Q6HRS PRN PO MILD PAIN / TEMP; Start 04/11/19 at 11:45 Ibuprofen (Motrin) 800 mg PRN Q8HRS PRN PO INFLAMMATION/PAIN PREVENTION Last administered on 04/12/19at 05:35; Start 04/11/19 at 11:45 Docusate Sodium (Colace) 100 mg PRN BID PRN PO CONSTIPATION Last administered on 04/12/19at 06:53; Start 04/11/19 at 11:45 Magnesium Hydroxide (Milk Of Magnesia) 2,400 mg PRN DAILY PRN PO CONSTIPATION; Start 04/11/19 at 11:45 Al Hydroxide/Mg Hydroxide (Mylanta Plus Xs) 30 ml PRN Q4HRS PRN PO HEARTBURN / GAS; Start 04/11/19 at 11:45 Simethicone (Gas-X) 80 mg PRN AFTMEALHC PRN PO GAS / BLOATING; Start 04/11/19 at 11:45 Diphenhydramine HCl (Benadryl) 25 mg PRN Q6HRS PRN PO ITCHING; Start 04/11/19 at 11:45 Benzocaine (Americaine) 1 spray PRN QID PRN TP TOPICAL PAIN; Start 04/11/19 at 11:45 Phenyleph/Shark Oil/Min Oil/Petrol (Preparation H) 1 benoit PRN QID PRN RC RECTAL PAIN; Start 04/11/19 at 11:45 Hydrocortisone (Cortaid) 1 benoit PRN QID PRN TP PERINEAL PAIN; Start 04/11/19 at 11:45 Ferrous Sulfate (Feosol) 325 mg BIDWMEALS PO Last administered on 04/12/19at 06:53; Start 04/12/19 at 08:00 Zolpidem Tartrate (Ambien) 5 mg PRN QHS PRN PO INSOMNIA, MAY REPEAT X1; Start 04/11/19 at 11:45 Info (Do NOT chart on this placeholder) 1 ea 1X PRN PRN MC SEE COMMENTS; Start 04/11/19 at 11:45; Stop 04/12/19 at 07:01; Status DC Info (Do NOT chart on this placeholder) 1 ea 1X PRN PRN MC SEE COMMENTS; Start 04/11/19 at 11:45; Stop 04/12/19 at 07:01; Status DC Oxycodone/ Acetaminophen (Percocet 5/325) 2 tab PRN Q4HRS PRN PO MODERATE PAIN, SEVERE PAIN Last administered on 04/12/19at 05:35; Start 04/11/19 at 11:45 Active Scripts Active Reglan (Metoclopramide Hcl) 10 Mg Tablet 10 Mg PO BIDAC PRN Zithromax (Azithromycin) 250 Mg Tablet 1 Pkg PO UD Medrol (Methylprednisolone) 4 Mg Tab.ds.pk 1 Pkg PO UD Exam Abd: soft, non tender, fundus firm Assessment PPD#1 s/p Plan of Care: Continue current Tx, Mgmt LOLIS MANN Jr, MD Apr 12, 2019 07:41
[2019-04-12 11:26] VITALS: BP 119/80
[2019-04-12 16:07] VITALS: BP 126/77
[2019-04-12 21:06] VITALS: BP 124/91
[2019-04-13 04:00] VITALS: BP 131/73
[2019-04-13] MEDS: oxyCODONE/APAP 5/325 1 TAB TABLET PO PRN ×2 (06:38→11:09)
[2019-04-13] MEDS: FERROUS SULFATE 325 MG TABLET. PO SCH ×2 (08:06→16:39)
[2019-04-13] MEDS: DOCUSATE SODIUM 100 MG CAPSULE. PO PRN (08:11)
[2019-04-13] MEDS: IBUPROFEN 400 MG TABLET. PO PRN (08:49)
[2019-04-13 09:09] VITALS: BP 105/55
--- NOTE | 2019-04-13 13:07 | PDOC3 ---
OB DISCHARGE SUMMARY DATE OF ADMISSION: 04/11/19 DATE OF DISCHARGE: 04/13/19 REASON FOR ADMISSION: Onset of labor INTRAPARTUM PROCEDURES: Spontanous Vag Deliv DISCHARGE DIAGNOSIS: Term Delivered DISCHARGE INFORMATION: Activity (ad dennys), Diet (regular), Instructions (pelvic rest x 6 wks) HOSPITAL COURSE Term gestation delivered without complications LOLIS MANN Jr, MD Apr 13, 2019 13:07
[2019-04-13] MEDS ORDERED: IBUP-1027 PO (13:08)
--- NOTE | 2019-04-13 13:09 | DISCH ---
DISCHARGE INSTRUCTIONS Condition on Discharge Condition on Discharge: Stable Activity After Discharge Activity Instructions for Disc: Activity as tolerated Lifting Instructions after Dis: No heavy lifting, No pulling or pushing, Do not lift >10 pounds Exercise Instruction after Dis: Progress as tolerated Driving Instructions after Dis: No driving for 2 weeks Weight Bearing Status after Di: Full weight bearing Diet after Discharge Diet after Discharge: Regular Wound Incision Care Wound/Incision Care: No wound care needed Contacting the DRJosh after DC Call your doctor for: Concerns you may have Follow-Up Follow up with: Dr. Panchal in 6 wks Treatment/Equipment after DC Adaptive Equipment Issued: None LOLIS PANCHAL Jr, MD Apr 13, 2019 13:09
--- NOTE | 2019-04-14 18:06 | PATHOLOGY ---
[facility] Accession Number: [id number] . 01 Material submitted: . placenta - PLACENTA . 01 Clinical history: . ; EDC 04/12/19; 39.6 week gestation; thick meconium; GBS positive; small reducible umbilical hernia on baby . 02 Diagnosis: 484 gram term placenta of an estimated 39.6 weeks gestation with attached membranes and umbilical cord: - Subamniotic pigmented macrophages consistent with meconium staining. - Small intervillous thrombus. (JPM:osman; 04/14/2019) MBR 04/14/2019 1709 Local . 02 Comment: There is no evidence of an acute chorioamnionitis or villitis. There are no infarcts. (JPM:osman; 04/14/2019) . 02 Electronically signed: . Morgan Trevino MD, Pathologist NPI- [id number] . 01 Gross description: . The specimen is received in formalin, labeled "Naye Jaimes, placenta". Received is a osman placenta with attached membranes and umbilical cord with a trimmed placental weight of 484 g and measuring 19.5 x 17.1 x 2.6 cm in greatest dimensions. The membranes are blue-nance to nance-green in appearance, and the site of membrane rupture is 5.6 cm from the placental margin. The surface is intact, displaying a normal arborizing vascular pattern, and is blue-green in appearance with completely detached amnion wrapped around the cord at the insertion site. The trivascular umbilical cord measures 47.2 cm in length by up to 1.5 cm in diameter and inserts centrally, 8.1 cm from the closest placental margin. The umbilical cord is white-delgadillo to white-green in appearance with moderate helical twisting. The maternal surface is intact and complete; a slight amount of adherent blood coagulum is seen on the surface. Sectioning reveals red-brown cut surfaces with no grossly distinct nodules or lesions. The specimen is submitted representatively as follows: . A1 proximal umbilical cord and surface vessels A2 umbilical cord and membrane roll A3-A4 patient intake representative sections of maternal surface. (CAA; 04/13/2019) QAC/QAC 04/14/2019 1505 Local . 02 Pathologist provided ICD-10: O77.0, O43.893, Z37.0, Z3A.39 . 02 CPT . 508812 Specimen Comment: A courtesy copy of this report has been sent to [phone] Specimen Comment: Report sent to Performed at: 01 [facility] [address], [place] [id number] MD Justyn Fowler MD Phone: [phone] Performed at: 02 [facility] [address] [place], [place] [id number] MD Morgan Trevino MD Phone: [phone]
== END 2019-04-13 17:28 | disposition home or self-care (01) | DRG 806 ==
LOC: 3 SO LND 07:08 → OBSVTOIN 07:08 → 3 NORTH 14:35
PROVIDERS: ADMIT Obstetrics & Gynecology; ATTEND Obstetrics & Gynecology
PROC: 10E0XZZ Delivery of Products of Conception, External Approach (ICD-10-PCS; principal; 2019-04-11)
PROC: 3E0R3BZ Introduction of Anesthetic Agent into Spinal Canal, Percutaneous Approach (ICD-10-PCS; 2019-04-11)
PROC: 00HU33Z Insertion of Infusion Device into Spinal Canal, Percutaneous Approach (ICD-10-PCS; 2019-04-11)
DX: O77.0 Labor and delivery complicated by meconium in amniotic fluid (principal); R71.0 Precipitous drop in hematocrit; Z37.0 Single live birth; Z3A.39 39 weeks gestation of pregnancy; O75.89 Other specified complications of labor and delivery
CPT/HCPCS: 36415; 81001; 85025; 86592; 86850; 86900; 86901; 87086; 88307; G0378; G0379; J2540; J3010; J7120

== ENCOUNTER 2020-02-13 10:33 | Emergency (ER) | payer OTHER ==
[~2020-02-13] VITALS: Ht 162.6 cm; Wt 95.4 kg
[~2020-02-13 10:33] MED LIST changes: +IBUP-1027 PO
--- NOTE | 2020-02-13 11:29 | PHYS DOC ---
Past Medical History Past Medical History: No Pertinent History Past Surgical History: No Surgical History Smoking Status: Current Some Day Smoker Alcohol Use: None Drug Use: None General Adult EDM: Chief Complaint: BLOOD IN URINE HPI: HPI: Patient is a 24 year old female who presents with 3 days of blood in her urine with urinary frequency. She denies abdominal pain, nausea, vomiting, diarrhea, back pain, headache, dizziness, fever, chills, body aches, chest pain, shortness of air. Patient denies any pain at this time. She denies any past medical history. She states she takes no medications daily. Review of Systems: Review of Systems: Constitutional: Denies fever or chills. [] Eyes: Denies change in visual acuity. [] HENT: Denies nasal congestion or sore throat. [] Respiratory: Denies cough or shortness of breath. [] Cardiovascular: Denies chest pain or edema. [] GI: Denies abdominal pain, nausea, vomiting, bloody stools or diarrhea. [] : dysuria. Hematuria. [] Musculoskeletal: Denies back pain or joint pain. [] Integument: Denies rash. [] Neurologic: Denies headache, focal weakness or sensory changes. [] Endocrine: Denies polyuria or polydipsia. [] Lymphatic: Denies swollen glands. [] Psychiatric: Denies depression or anxiety. [] Heart Score: Risk Factors: Risk Factors: DM, Current or recent (<one month) smoker, HTN, HLP, family history of CAD, obesity. Risk Scores: Score 0 - 3: 2.5% MACE over next 6 weeks - Discharge Home Score 4 - 6: 20.3% MACE over next 6 weeks - Admit for Clinical Observation Score 7 - 10: 72.7% MACE over next 6 weeks - Early Invasive Strategies Allergies: Allergies: Allergies Coded Allergies Type Severity Reaction Last Updated Verified No Known Drug Allergies 08/24/19 No Physical Exam: PE: Constitutional: Well developed, well nourished, no acute distress, non-toxic appearance. [] HENT: Normocephalic, atraumatic, bilateral external ears normal, oropharynx moist, no oral exudates, nose normal. [] Eyes: PERRLA, EOMI, conjunctiva normal, no discharge. [] Neck: Normal range of motion, no tenderness, supple, no stridor. [] Cardiovascular:Heart rate regular rhythm, no murmur [] Lungs & Thorax: Bilateral breath sounds clear to auscultation [] Abdomen: Bowel sounds normal, soft, no tenderness, no masses, no pulsatile masses. [] Skin: Warm, dry, no erythema, no rash. [] Back: No tenderness, no CVA tenderness. [] Extremities: No tenderness, no cyanosis, no clubbing, ROM intact, no edema. [] Neurologic: Alert and oriented X 3, normal motor function, normal sensory function, no focal deficits noted. [] Psychologic: Affect normal, judgement normal, mood normal. Normal physical exam. [] Current Patient Data: Labs: Laboratory Tests Test 02/13/20 11:02 POC Urine HCG, Qualitative Hcg positive (Negative) EKG: EKG: [] Radiology/Procedures: Radiology/Procedures: [] Impression: [facility] [address] [place], [place] [id number] IMAGING REPORT Signed PATIENT: MORENO BROWN ACCOUNT: [id number] : 1995 LOCATION: ER AGE: 24 SEX: F EXAM STATUS: REG ER ORD. PHYSICIAN: SHERI BIRD APRN REASON: bleeding; abd pain per pt PROCEDURE: PREG MORE THAN OR EQ TO 14 WKS Examination: Ultrasound greater than 14 weeks HISTORY: History of abdominal pain, bleeding COMPARISON: 11/16/2018. Findings: Single living intrauterine identified with heart rate of 147 bpm. Amniotic fluid index measures 10 cm The biparietal diameter measures 3.9 cm corresponding to 18 weeks and 1 day. Head circumference measures 14.4 cm corresponding to 17 weeks and 5 days. Abdominal circumference measures 12.9 cm corresponding to 18 weeks and 3 days. Femur length measures 2.5 cm corresponding 17 weeks and 5 days. Head circumference to abdominal circumference ratio 1.1 Estimated weight 223 g Gestational age by AUA 18 weeks and 0 days. Clinical age 17 weeks and 6 days. Estimated date of delivery by ultrasound is 07/16/2020. IMPRESSION: 1. Single living intrauterine as described above. Electronically signed by: Nick Guzman MD (02/13/2020 2:12 PM) [id number] DICTATED and SIGNED BY: NICK GUZMAN MD DATE: 02/13/20 1412 Course & Med Decision Making: Course & Med Decision Making Pertinent Labs and Imaging studies reviewed. (See chart for details) Alert and oriented x4. Ambulatory with a steady gait. Speaks in full clear sentences. Skin pink warm and dry. Vital signs are within normal limits. Afebrile. Abdomen soft and nontender. No CVA tenderness. Denies any vaginal bleeding or abnormal vaginal discharge. [] Dragon Disclaimer: Dragon Disclaimer: This electronic medical record was generated, in whole or in part, using a voice recognition dictation system. Departure Departure Impression: Primary Impression: Urinary symptom or sign Additional Impression: Qualified Codes: Z3A.18 - 18 weeks gestation of Disposition: 01 HOME, SELF-CARE Condition: STABLE Referrals: NO PCP (PCP) LOLIS MANN Jr, MD Patient Instructions: ABCs of , - Urinary Tract Infection Additional Instructions: Follow-up with your OB doctor soon as possible. Drink plenty of fluids. Take your medication as prescribed and with food. Begin taking vitamins. Scripts Cephalexin (KEFLEX) 500 Mg Capsule 1 CAP PO BID for 7 Days, #14 CAP 0 Refills Prov: SHERI BIRD APRN 02/13/20 Justicifation of Admission Dx: Justifications for Admission: Justification of Admission Dx: N/A SHERI BIRD APRN Feb 13, 2020 11:29
[2020-02-13 11:32] LABS: BILIRUBIN,URINE NEGATIVE (NEG); CLARITY,URINE CLOUDY; COLOR,URINE AMBER; NITRITE,URINE NEGATIVE (NEG); PROTEIN,URINE >=300 mg/dL (NEG-TRACE)
[2020-02-13 11:47] LABS: BACTERIA,URINE 0 /HPF (0-FEW); RBC,URINE 20-40 /HPF (0-2); SQUAMOUS EPITHELIAL CELL,UR FEW /LPF
[2020-02-13 12:09] LABS: BASO # 0.1 x10^3/uL (0.0-0.2); BASO % 1 % (0-3); EOS # 0.1 x10^3/uL (0.0-0.7); EOS % 1 % (0-3); HEMATOCRIT 33.1 % (36.0-47.0); HEMOGLOBIN 11.2 g/dL (12.0-15.5); LYMPH # 1.4 x10^3/uL (1.0-4.8); LYMPH % 20 % (24-48); MEAN CORPUSCULAR HEMOGLOBIN 30 pg (25-35); MEAN CORPUSCULAR HGB CONC 34 g/dL (31-37); MEAN CORPUSCULAR VOLUME 89 fL (79-100); MONO # 0.6 x10^3/uL (0.0-1.1); MONO % 8 % (0-9); NEUT # 5.1 x10^3/uL (1.8-7.7); NEUT % 71 % (31-73); PLATELET COUNT 111 x10^3/uL (140-400); RED BLOOD COUNT 3.73 x10^6/uL (3.50-5.40); RED CELL DISTRIBUTION WIDTH 13.5 % (11.5-14.5); WHITE BLOOD COUNT 7.2 x10^3/uL (4.0-11.0)
[2020-02-13 12:20] LABS: CALCIUM 8.9 mg/dL (8.5-10.1); CREATININE 0.4 mg/dL (0.6-1.0); GFR 233.5; POTASSIUM 3.4 mmol/L (3.5-5.1)
[2020-02-13 12:27] LABS: ALBUMIN 3.2 g/dL (3.4-5.0); ALBUMIN/GLOBULIN RATIO 0.8 (1.0-1.7); TOTAL BILIRUBIN 0.3 mg/dL (0.2-1.0); TOTAL PROTEIN 7.1 g/dL (6.4-8.2)
[2020-02-13] MEDS ORDERED: cefTRIAXone IV Push 1 GM VIAL. IVP ONE (12:30)
[2020-02-13] MEDS ORDERED: IV NORMAL SALINE 1000ML BAG 1,000 ML IV ONE (12:30)
[2020-02-13 12:58] LABS: BARBITURATES NEG (NEG); BENZODIAZEPINES NEG (NEG); CANNABINOIDS POS (NEG); COCAINE NEG (NEG); METHADONE NEG (NEG); OPIATES NEG (NEG); PHENCYCLIDINE NEG (NEG)
[2020-02-13 13:05] LABS: AMPHETAMINE/METHAMPHETAMINE NEG (NEG)
[2020-02-13 13:46] VITALS: BP 130/79
[2020-02-13] MEDS ORDERED: CEPH-264 PO (14:07)
--- NOTE | 2020-02-13 14:14 | RAD ---
Examination: Ultrasound greater than 14 weeks HISTORY: History of abdominal pain, bleeding COMPARISON: 11/16/2018. Findings: Single living intrauterine identified with heart rate of 147 bpm. Amniotic fluid index measures 10 cm The biparietal diameter measures 3.9 cm corresponding to 18 weeks and 1 day. Head circumference measures 14.4 cm corresponding to 17 weeks and 5 days. Abdominal circumference measures 12.9 cm corresponding to 18 weeks and 3 days. Femur length measures 2.5 cm corresponding 17 weeks and 5 days. Head circumference to abdominal circumference ratio 1.1 Estimated weight 223 g Gestational age by AUA 18 weeks and 0 days. Clinical age 17 weeks and 6 days. Estimated date of delivery by ultrasound is 07/16/2020. IMPRESSION: 1. Single living intrauterine as described above. Electronically signed by: Nick Guzman MD (02/13/2020 2:12 PM) [id number]
== END 2020-02-13 15:39 | disposition home or self-care (01) ==
LOC: ER 10:33
DX: O26.892 Other specified pregnancy related conditions, second trimester (principal); R31.9 Hematuria, unspecified; F17.200 Nicotine dependence, unspecified, uncomplicated; Z3A.18 18 weeks gestation of pregnancy
CPT/HCPCS: 36415; 76805; 80053; 80307; 81001; 81025; 84702; 85025; 87086; 96361; 96374; 99285; J0696; J7030

== ENCOUNTER → 2020-04-13 | Outpatient (CLI) | payer OTHER ==
[~2020-04-13] MED LIST changes: +CEPH-264 PO
--- NOTE | 2020-04-13 16:53 | RAD ---
OB ultrasound greater than 14 weeks 04/13/2020 Clinical History: survey. Technique: A real-time ultrasound examination of the gravid uterus was performed. Multiple images were obtained. Findings: Comparison study is dated 02/13/2020. There is a single living IUP. The fetus is in acephalic position. cardiac and somatic activity is seen. The heart rate is 157 beats per minutes. The placenta is anterior. No abnormality is seen. The amniotic fluid volume is within normal limits. Neither maternal ovary is visualized. The following measurements were obtained: BPD 6.36cm 25 weeks 5 days HC 23.70 cm 25weeks 6 days AC 23.21 cm 27weeks 4 days FL 4.69 cm 25 weeks 4 days The estimated gestational age by ultrasound is 26 weeks 1 days plus or minus a standard deviation of 10 days. The estimated date of delivery by ultrasound on today's study is 07/19/2020. Since the previous examination has been appropriate interval growth. No abnormality is seen. Specifically the stomach, bladder, kidneys, 3 vessel cord and cord insertion, four-chamber heart, cisterna magna, cerebellum, nose/mouth, spine and extremities are well-visualized and within normal limits. Impression: Single living IUP with an estimated gestational age by ultrasound of 26 weeks1 days +/- a standard deviation of 10 days. Since the previous examination there has been appropriate interval growth. Electronically signed by: Sandro Burrell MD (04/13/2020 4:51 PM) [id number]
== END ==
LOC: US 14:34
PROVIDERS: ATTEND Obstetrics & Gynecology
DX: Z32.01 Encounter for pregnancy test, result positive (principal); O26.842 Uterine size-date discrepancy, second trimester; Z3A.26 26 weeks gestation of pregnancy
CPT/HCPCS: 76805

== ENCOUNTER 2020-07-12 10:30 | Inpatient (IN) | payer OTHER ==
[~2020-07-12] VITALS: Ht 162.6 cm; Wt 110.7 kg
[2020-07-12] MEDS ORDERED: ONDANSETRON PF 4 MG/2 ML VIAL. IVP PRN (10:45)
[2020-07-12] MEDS ORDERED: ACETAMINOPHEN 325 MG TABLET. PO PRN ×2 (10:45→18:30)
[2020-07-12] MEDS ORDERED: IV RINGERS,LACTATED 1000ML 1,000 ML IV SCH ×3 (10:45→15:15)
[2020-07-12 11:00] VITALS: BP 107/57
[2020-07-12] MEDS ORDERED: IBUPROFEN 400 MG TABLET. PO PRN (11:45)
[2020-07-12] MEDS ORDERED: TERBUTALINE 1 MG/ML VIAL. SQ PRN (11:45)
[2020-07-12] MEDS ORDERED: BUTORPHANOL 2 MG/ML VIAL. IVP PRN (11:45)
[2020-07-12] MEDS ORDERED: 0.9 % SODIUM CHLORIDE 10 ML DISP.SYRIN. IV PRN ×2 (11:45→18:30)
[2020-07-12] MEDS ORDERED: CITRIC ACID/SODIUM CITRATE 30 ML SOLUTION. PO PRN (11:45)
[2020-07-12] MEDS ORDERED: OXYTOCIN 30 UNIT/500 ML PREMIX 500 ML IV PRN ×3 (11:45→18:30)
[2020-07-12] MEDS ORDERED: LIDOCAINE 1% PF 30 ML VIAL. INJ PRN (11:45)
[2020-07-12] MEDS ORDERED: fentaNYL PF VIAL 100 MCG/2 ML VIAL IVP PRN (11:45)
[2020-07-12] MEDS ORDERED: PENICILLIN G K 5,000,000 UNIT in IV DEXTROSE 5% 100ML 100 ML IV ONE (12:00)
--- NOTE | 2020-07-12 12:05 | PDOC1 ---
OB - History Hx of Present Care: Good Care Ultrasounds: Normal mid trimester US Obstetrical Complications: None Medical Complications: None Past Family/Social History * Past Medical, Surgical, Family and Obstetric Histories reviewed from chart. OB - Chief Complaint & HPI Date of Admission: Date of Admission: Jul 12, 2020 at 10:30 Chief Complaint/History : 2 Para: 1 EGA: 39 Reason for admission: active labor Admission Nurse Assessment Rev: Yes OB - Admission Exam Physical Exam HEENT: Normal Heart: Regular Rate Lungs: Clear Abdomen: Gravid, Non tender, Soft Extremities: Edema Reflexes: Normal Cervical Dilatation: 3cm Effacement: 75% Station: -3 Membranes: Intact Amniotic Fluid: Thick Meconium Heart Rate: Normal Accelerations: Accelerations Present Decelerations: No decelerations Contractions on Admission: < 5 Minutes Apart Intensity: Moderate Text A: 39 wks IUP Active labor P: ADmit labor management. LOLIS MANN Jr, MD Jul 12, 2020 12:05
[2020-07-12 14:51] LABS: BASO % 1 % (0-3); EOS % 0 % (0-3); HEMATOCRIT 33.5 % (36.0-47.0); LYMPH # 1.7 x10^3/uL (1.0-4.8); LYMPH % 20 % (24-48); MEAN CORPUSCULAR HEMOGLOBIN 29 pg (25-35); MEAN CORPUSCULAR HGB CONC 33 g/dL (31-37); MEAN CORPUSCULAR VOLUME 88 fL (79-100); MONO # 0.5 x10^3/uL (0.0-1.1); MONO % 6 % (0-9); NEUT # 6.2 x10^3/uL (1.8-7.7); NEUT % 73 % (31-73); PLATELET COUNT 106 x10^3/uL (140-400); RED BLOOD COUNT 3.81 x10^6/uL (3.50-5.40); RED CELL DISTRIBUTION WIDTH 14.5 % (11.5-14.5); WHITE BLOOD COUNT 8.5 x10^3/uL (4.0-11.0)
[2020-07-12 15:12] LABS: PLT ESTIMATE DECREASED (ADEQUATE)
[2020-07-12] MEDS ORDERED: ROPIVacaine 0.2% PF 10 ML VIAL. ONE ×2 (15:14→16:00)
[2020-07-12] MEDS ORDERED: NALOXONE 0.4 MG/ML VIAL. IV PRN (15:15)
[2020-07-12] MEDS ORDERED: L&D EPIDURAL SYRINGE 50 ML EPID PRN (15:15)
[2020-07-12] MEDS ORDERED: L&D EPIDURAL SYRINGE 50 ML ONE (15:15)
[2020-07-12] MEDS ORDERED: ROPIVacaine 0.2% PF 10 ML VIAL. EPID PRN (15:15)
[2020-07-12] MEDS ORDERED: PENICILLIN G K 2,500,000 UNIT in IV DEXTROSE 5% 50 ML IV SCH (16:00)
[2020-07-12] MEDS ORDERED: L&D EPIDURAL 50 ML SYRINGE. ONE (16:00)
[2020-07-12] MEDS ORDERED: PHENYLEPH/MINERAL OIL/PETROLAT RECTAL OINTMENT TUBE. RC PRN (18:30)
[2020-07-12] MEDS ORDERED: SIMETHICONE 80 MG TAB.CHEW PO PRN (18:30)
[2020-07-12] MEDS ORDERED: TDaP (Adacel) per PROTOCOL. MC PRN (18:30)
[2020-07-12] MEDS ORDERED: MAGNESIUM HYDROXIDE 2,400 MG/30 ML ORAL.SUSP. PO PRN (18:30)
[2020-07-12] MEDS ORDERED: MAG HYDROX/ALUMINUM HYD/SIMETH 30 ML ORAL.SUSP PO PRN (18:30)
[2020-07-12] MEDS ORDERED: MMR per PROTOCOL. MC PRN (18:30)
[2020-07-12] MEDS ORDERED: BENZOCAINE 20% TOPICAL AEROSOL SPRAY 57GM CAN. TP PRN (18:30)
[2020-07-12] MEDS ORDERED: HYDROCORTISONE 1% TOPICAL OINTMENT 30GM TUBE. TP PRN (18:30)
[2020-07-12] MEDS ORDERED: diphenhydrAMINE HCL 25 MG CAPSULE PO PRN (18:30)
[2020-07-12] MEDS ORDERED: ZOLPIDEM 5 MG TABLET. PO PRN (18:30)
--- NOTE | 2020-07-12 18:30 | PDOC ---
VAGINAL DELIVERY DATE DATE: 07/12/20 TIME: 18:27 : 3 Para: 3 EGA: 38 VAGINAL DELIVERY: VTX VACCUM ASSISTED: No PLACENTA: Spontaneous 8/9 SEX: Male WEIGHT Weight [ 7 lbs. 9 oz.] Nuchal Cord: Yes, Times 1 Amniotic Fluid: Thin Meconium PAIN: Epidural EPISIOTOMY: No EXTENSION: No EBL 300 ml COMPLICATIONS none CONDITION pt. stable Signs of Intrauterine Infectio: None Shoulder Dystocia: No LOLIS MANN Jr, MD Jul 12, 2020 18:30
[2020-07-12 22:00] VITALS: BP 121/60
[2020-07-13] MEDS: oxyCODONE/APAP 5/325 1 TAB TABLET PO PRN ×4 (01:03→19:18)
[2020-07-13] MEDS: IBUPROFEN 400 MG TABLET. PO PRN ×2 (01:03→09:19)
[2020-07-13 02:00] VITALS: BP 110/65
[2020-07-13 06:15] VITALS: BP 115/67
[2020-07-13 07:00] LABS: BASO # 0.1 x10^3/uL (0.0-0.2); BASO % 1 % (0-3); EOS % 0 % (0-3); HEMATOCRIT 31.8 % (36.0-47.0); HEMOGLOBIN 10.7 g/dL (12.0-15.5); LYMPH # 2.3 x10^3/uL (1.0-4.8); LYMPH % 23 % (24-48); MEAN CORPUSCULAR HEMOGLOBIN 30 pg (25-35); MEAN CORPUSCULAR HGB CONC 34 g/dL (31-37); MEAN CORPUSCULAR VOLUME 88 fL (79-100); MONO # 0.7 x10^3/uL (0.0-1.1); MONO % 7 % (0-9); NEUT # 6.8 x10^3/uL (1.8-7.7); NEUT % 68 % (31-73); PLATELET COUNT 106 x10^3/uL (140-400); RED BLOOD COUNT 3.61 x10^6/uL (3.50-5.40); RED CELL DISTRIBUTION WIDTH 14.2 % (11.5-14.5); WHITE BLOOD COUNT 9.9 x10^3/uL (4.0-11.0)
[2020-07-13] MEDS ORDERED: FERROUS SULFATE 325 MG TABLET. PO SCH (08:00)
--- NOTE | 2020-07-13 08:48 | PDOC ---
OB Progress Note Date of Service 07/13/20 Time of Evaluation 0845 Notes Pt. feeling well. No complaints. Lab Laboratory Tests Test 07/12/20 12:30 07/12/20 13:30 07/13/20 06:42 White Blood Count 8.5 x10^3/uL (4.0-11.0) 9.9 x10^3/uL (4.0-11.0) Red Blood Count 3.81 x10^6/uL (3.50-5.40) 3.61 x10^6/uL (3.50-5.40) Hemoglobin 11.0 g/dL (12.0-15.5) 10.7 g/dL (12.0-15.5) Hematocrit 33.5 % (36.0-47.0) 31.8 % (36.0-47.0) Mean Corpuscular Volume 88 fL (79-100) 88 fL (79-100) Mean Corpuscular Hemoglobin 29 pg (25-35) 30 pg (25-35) Mean Corpuscular Hemoglobin Concent 33 g/dL (31-37) 34 g/dL (31-37) Red Cell Distribution Width 14.5 % (11.5-14.5) 14.2 % (11.5-14.5) Platelet Count 106 x10^3/uL (140-400) 106 x10^3/uL (140-400) Neutrophils (%) (Auto) 73 % (31-73) 68 % (31-73) Lymphocytes (%) (Auto) 20 % (24-48) 23 % (24-48) Monocytes (%) (Auto) 6 % (0-9) 7 % (0-9) Eosinophils (%) (Auto) 0 % (0-3) 0 % (0-3) Basophils (%) (Auto) 1 % (0-3) 1 % (0-3) Neutrophils # (Auto) 6.2 x10^3/uL (1.8-7.7) 6.8 x10^3/uL (1.8-7.7) Lymphocytes # (Auto) 1.7 x10^3/uL (1.0-4.8) 2.3 x10^3/uL (1.0-4.8) Monocytes # (Auto) 0.5 x10^3/uL (0.0-1.1) 0.7 x10^3/uL (0.0-1.1) Eosinophils # (Auto) 0.0 x10^3/uL (0.0-0.7) 0.0 x10^3/uL (0.0-0.7) Basophils # (Auto) 0.0 x10^3/uL (0.0-0.2) 0.1 x10^3/uL (0.0-0.2) Platelet Estimate Decreased (ADEQUATE) Large Platelets Few Giant Platelets Occ Treponema pallidum Antibody Nonreactive (Nonreactive) Coronavirus (PCR) Not detected (Not Detected) SARS-CoV-2 Antigen (Rapid) Negative (NEGATIVE) Laboratory Tests Test 07/12/20 12:30 07/12/20 13:30 07/13/20 06:42 White Blood Count 8.5 x10^3/uL (4.0-11.0) 9.9 x10^3/uL (4.0-11.0) Red Blood Count 3.81 x10^6/uL (3.50-5.40) 3.61 x10^6/uL (3.50-5.40) Hemoglobin 11.0 g/dL (12.0-15.5) 10.7 g/dL (12.0-15.5) Hematocrit 33.5 % (36.0-47.0) 31.8 % (36.0-47.0) Mean Corpuscular Volume 88 fL (79-100) 88 fL (79-100) Mean Corpuscular Hemoglobin 29 pg (25-35) 30 pg (25-35) Mean Corpuscular Hemoglobin Concent 33 g/dL (31-37) 34 g/dL (31-37) Red Cell Distribution Width 14.5 % (11.5-14.5) 14.2 % (11.5-14.5) Platelet Count 106 x10^3/uL (140-400) 106 x10^3/uL (140-400) Neutrophils (%) (Auto) 73 % (31-73) 68 % (31-73) Lymphocytes (%) (Auto) 20 % (24-48) 23 % (24-48) Monocytes (%) (Auto) 6 % (0-9) 7 % (0-9) Eosinophils (%) (Auto) 0 % (0-3) 0 % (0-3) Basophils (%) (Auto) 1 % (0-3) 1 % (0-3) Neutrophils # (Auto) 6.2 x10^3/uL (1.8-7.7) 6.8 x10^3/uL (1.8-7.7) Lymphocytes # (Auto) 1.7 x10^3/uL (1.0-4.8) 2.3 x10^3/uL (1.0-4.8) Monocytes # (Auto) 0.5 x10^3/uL (0.0-1.1) 0.7 x10^3/uL (0.0-1.1) Eosinophils # (Auto) 0.0 x10^3/uL (0.0-0.7) 0.0 x10^3/uL (0.0-0.7) Basophils # (Auto) 0.0 x10^3/uL (0.0-0.2) 0.1 x10^3/uL (0.0-0.2) Platelet Estimate Decreased (ADEQUATE) Large Platelets Few Giant Platelets Occ Treponema pallidum Antibody Nonreactive (Nonreactive) Coronavirus (PCR) Not detected (Not Detected) SARS-CoV-2 Antigen (Rapid) Negative (NEGATIVE) Medications Current Medications Ringer's Solution 1,000 ml @ 125 mls/hr Q8H IV ; Start 07/12/20 at 10:45; Stop 07/12/20 at 21:08; Status DC Acetaminophen (Tylenol) 650 mg PRN Q6HRS PRN PO PAIN, TEMP > 100.5'F; Start 07/12/20 at 10:45; Stop 07/12/20 at 21:08; Status DC Ondansetron HCl (Zofran) 4 mg PRN Q6HRS PRN IVP NAUSEA; Start 07/12/20 at 10:45; Stop 07/12/20 at 21:08; Status DC Sodium Chloride (Normal Saline Flush) 3 ml QSHIFT PRN IV AFTER MEDS AND BLOOD DRAWS; Start 07/12/20 at 11:45; Stop 07/12/20 at 21:08; Status DC Ringer's Solution 1,000 ml @ 125 mls/hr Q8H IV Last administered on 07/12/20at 12:31; Start 07/12/20 at 11:45; Stop 07/12/20 at 21:09; Status DC Butorphanol Tartrate (Stadol) 2 mg PRN Q1HR PRN IVP Severe labor pain; Start 07/12/20 at 11:45; Stop 07/12/20 at 21:09; Status DC Fentanyl Citrate (Fentanyl 2ml Vial) 100 mcg PRN Q20MIN PRN IVP Labor pain; Start 07/12/20 at 11:45; Stop 07/12/20 at 21:09; Status DC Citric Acid/ Sodium Citrate (Bicitra) 30 ml 1X PRN PRN PO DYSPEPSIA; Start 07/12/20 at 11:45; Stop 07/12/20 at 21:09; Status DC Terbutaline Sulfate (Brethine) 0.25 mg 1X PRN PRN SQ SEE COMMENTS; Start 07/12/20 at 11:45; Stop 07/12/20 at 21:09; Status DC Lidocaine HCl (Xylocaine 1% Pf 30ml Vial) 30 ml 1X PRN PRN INJ SEE COMMENTS; Start 07/12/20 at 11:45; Stop 07/12/20 at 21:09; Status DC Oxytocin 500 ml @ 0 mls/hr CONT PRN IV SEE I/O RECORD Last administered on 07/12/20at 16:31; Start 07/12/20 at 11:45; Stop 07/12/20 at 21:09; Status DC Oxytocin 500 ml @ 0 mls/hr CONT PRN PRN IV Post delivery bleeding; Start 07/12/20 at 11:45; Stop 07/12/20 at 21:09; Status DC Ibuprofen (Motrin) 800 mg PRN Q6HRS PRN PO INFLAMMATION; Start 07/12/20 at 11:45; Stop 07/12/20 at 21:09; Status DC Penicillin G Potassium [id number] unit/Dextrose 100 ml @ 100 mls/hr 1X ONCE IV Last administered on 07/12/20at 12:32; Start 07/12/20 at 12:00; Stop 07/12/20 at 21:08; Status DC Penicillin G Potassium [id number] unit/Dextrose 50 ml @ 100 mls/hr Q4H IV Last administered on 07/12/20at 16:29; Start 07/12/20 at 16:00; Stop 07/12/20 at 18 :37; Status DC Ringer's Solution 1,000 ml @ 1,000 mls/hr Q1H IV Last administered on 07/12/20at 16:33; Start 07/12/20 at 15:15; Stop 07/12/20 at 16:14; Status DC Naloxone HCl (Narcan) 0.04 mg PRN Q1MIN PRN IV SEE COMMENTS; Start 07/12/20 at 15:15; Stop 07/12/20 at 21:08; Status DC Fentanyl Citrate 50 ml @ 14 mls/hr CONT PRN EPID PAIN; Start 07/12/20 at 15:15; Stop 07/12/20 at 21:09; Status DC Ropivacaine (Naropin 0.2%) 20 ml 1X PRN PRN EPID PER ANESTHESIA; Start 07/12/20 at 15:15; Stop 07/12/20 at 21:09; Status DC Ropivacaine (Naropin 0.2%) 10 ml STK-MED ONCE .ROUTE ; Start 07/12/20 at 15:14; Stop 07/12/20 at 15:15; Status DC Fentanyl Citrate 50 ml @ As Directed STK-MED ONCE .ROUTE ; Start 07/12/20 at 15:15; Stop 07/12/20 at 15:15; Status DC Sodium Chloride (Normal Saline Flush) 10 ml QSHIFT PRN IV AFTER MEDS AND BLOOD DRAWS; Start 07/12/20 at 18:30 Oxytocin 500 ml @ 62.5 mls/hr CONT PRN IV SEE I/O RECORD; Start 07/12/20 at 18:30; Stop 07/13/20 at 02:29; Status DC Acetaminophen (Tylenol) 650 mg PRN Q6HRS PRN PO MILD PAIN / TEMP > 100.3'F; Start 07/12/20 at 18:30 Ibuprofen (Motrin) 800 mg PRN Q8HRS PRN PO INFLAMMATION/PAIN PREVENTION Last administered on 07/13/20at 01:03; Start 07/12/20 at 18:30 Docusate Sodium (Colace) 100 mg PRN BID PRN PO HARD STOOLS; Start 07/12/20 at 18:30 Magnesium Hydroxide (Milk Of Magnesia) 2,400 mg PRN DAILY PRN PO CONSTIPATION; Start 07/12/20 at 18:30 Al Hydroxide/Mg Hydroxide (Mylanta Plus Xs) 30 ml PRN Q4HRS PRN PO HEARTBURN / GAS; Start 07/12/20 at 18:30 Simethicone (Gas-X) 80 mg PRN AFTMEALHC PRN PO GAS / BLOATING; Start 07/12/20 at 18:30 Diphenhydramine HCl (Benadryl) 25 mg PRN Q6HRS PRN PO ITCHING; Start 07/12/20 at 18:30 Benzocaine (Americaine) 1 spray PRN QID PRN TP TOPICAL PAIN; Start 07/12/20 at 18:30 Phenyleph/Shark Oil/Min Oil/Petrol (Preparation H) 1 benoit PRN QID PRN RC RECTAL PAIN; Start 07/12/20 at 18:30 Hydrocortisone (Cortaid) 1 benoit PRN QID PRN TP PERINEAL PAIN; Start 07/12/20 at 18:30 Ferrous Sulfate (Feosol) 325 mg BIDWMEALS PO ; Start 07/13/20 at 08:00; Stop 07/13/20 at 08:34; Status DC Zolpidem Tartrate (Ambien) 5 mg PRN QHS PRN PO INSOMNIA, MAY REPEAT X1; Start 07/12/20 at 18:30 Info (Do NOT chart on this placeholder) 1 ea 1X PRN PRN MC SEE COMMENTS; Start 07/12/20 at 18:30 Info (Do NOT chart on this placeholder) 1 ea 1X PRN PRN MC SEE COMMENTS; Start 07/12/20 at 18:30 Oxycodone/ Acetaminophen (Percocet 5/325) 2 tab PRN Q4HRS PRN PO MODERATE PAIN, SEVERE PAIN Last administered on 07/13/20at 06:40; Start 07/12/20 at 18:30 Multivitamins (Thera M Plus) 1 tab DAILY PO ; Start 07/13/20 at 09:00 Fentanyl Citrate (Ecizaqff-Fiayp-AZ 3 Mcg-0.1%) 50 ml STK-MED ONCE .ROUTE ; Start 07/12/20 at 16:00; Stop 07/13/20 at 08:24; Status DC Ropivacaine (Naropin 0.2%) 10 ml STK-MED ONCE .ROUTE ; Start 07/12/20 at 16:00; Stop 07/13/20 at 08:24; Status DC Active Scripts Active Keflex (Cephalexin) 500 Mg Capsule 1 Cap PO BID 7 Days Ibuprofen 400 Mg Tablet 800 Mg PO PRN Q8HRS PRN Reglan (Metoclopramide Hcl) 10 Mg Tablet 10 Mg PO BIDAC PRN Zithromax (Azithromycin) 250 Mg Tablet 1 Pkg PO UD Medrol (Methylprednisolone) 4 Mg Tab.ds.pk 1 Pkg PO UD Exam Abd: soft, non tender, fundus firm Assessment PPD#1 s/p Plan of Care: Continue current Tx, Mgmt LOLIS MANN Jr, MD Jul 13, 2020 08:48
[2020-07-13] MEDS: DOCUSATE SODIUM 100 MG CAPSULE. PO PRN (09:18)
[2020-07-13] MEDS: MULTIVITAMIN with MINERAL TABLET. PO SCH (09:18)
[2020-07-13 11:10] VITALS: BP 100/56
[2020-07-13 19:37] VITALS: BP 129/82
[2020-07-14] MEDS: oxyCODONE/APAP 5/325 1 TAB TABLET PO PRN (02:30)
[2020-07-14 04:58] VITALS: BP 119/75
--- NOTE | 2020-07-14 08:24 | PDOC3 ---
OB DISCHARGE SUMMARY DATE OF ADMISSION: 07/12/20 DATE OF DISCHARGE: 07/14/20 REASON FOR ADMISSION: Onset of labor INTRAPARTUM PROCEDURES: Spontanous Vag Deliv DISCHARGE DIAGNOSIS: Term Delivered DISCHARGE INFORMATION: Activity (ad dennys), Diet (regular), Instructions (pelvic rest x 6 wks) HOSPITAL COURSE Term gestation delivered vaginally without difficulty. LOLIS MANN Jr, MD Jul 14, 2020 08:24
[2020-07-14] MEDS ORDERED: IBUP-1027 PO (08:26)
--- NOTE | 2020-07-14 08:27 | DISCH ---
DISCHARGE INSTRUCTIONS Condition on Discharge Condition on Discharge: Stable Activity After Discharge Activity Instructions for Disc: No restrictions Lifting Instructions after Dis: No heavy lifting Exercise Instruction after Dis: Progress as tolerated Driving Instructions after Dis: Do not drive today Weight Bearing Status after Di: Full weight bearing Diet after Discharge Diet after Discharge: Regular Diet Texture: Regular Liquid Texture: Thin Liquid Swallowing Supervision: None needed Wound Incision Care Wound/Incision Care: No wound care needed Contacting the DRJosh after DC Call your doctor for: Concerns you may have Follow-Up Follow up with: Dr. Panchal in 6 wks. Treatment/Equipment after DC Adaptive Equipment Issued: None LOLIS PANCHAL Jr, MD Jul 14, 2020 08:27
[2020-07-14 10:00] VITALS: BP 130/74
[2020-07-14] MEDS: DOCUSATE SODIUM 100 MG CAPSULE. PO PRN (11:06)
[2020-07-14] MEDS: MULTIVITAMIN with MINERAL TABLET. PO SCH (11:06)
[2020-07-14] MEDS: IBUPROFEN 400 MG TABLET. PO PRN (11:06)
[2020-07-14 14:10] VITALS: BP 120/54
--- NOTE | 2020-07-14 17:04 | NUR ---
1430 Discharge Discharge instructions given to patient at this time, no questions or concerns noted. To follow up with DR Panchal in 6 weeks. Patient ambulated off unit with all her belonging, baby in car seat and family.
== END 2020-07-14 14:45 | disposition home or self-care (01) | DRG 807 ==
LOC: 3 SO LND 10:30 → OBSVTOIN 11:50 → 3 NORTH 21:45
PROVIDERS: ADMIT Obstetrics & Gynecology; ATTEND Obstetrics & Gynecology
PROC: 10E0XZZ Delivery of Products of Conception, External Approach (ICD-10-PCS; principal; 2020-07-12)
PROC: 3E0R3BZ Introduction of Anesthetic Agent into Spinal Canal, Percutaneous Approach (ICD-10-PCS; 2020-07-12)
PROC: 00HU33Z Insertion of Infusion Device into Spinal Canal, Percutaneous Approach (ICD-10-PCS; 2020-07-12)
DX: O77.0 Labor and delivery complicated by meconium in amniotic fluid (principal); Z37.0 Single live birth; O69.81X0 Labor and delivery complicated by cord around neck, without compression, not applicable or unspecified; Z20.822 Contact with and (suspected) exposure to COVID-19; Z3A.39 39 weeks gestation of pregnancy
CPT/HCPCS: 36415; 85025; 86592; 86850; 86900; 86901; 87426; G0379; J2540; J2590; J2795; J3010; J7060; J7120; U0003; G0378

== ENCOUNTER 2021-02-07 13:11 | Emergency (ER) | payer OTHER | END 2021-02-07 17:03 | disposition left against medical advice (07) | LOC: ER 13:11 | DX: U07.1 COVID-19 (principal); Z53.21 Procedure and treatment not carried out due to patient leaving prior to being seen by health care provider ==